=== PATIENT | female | born 1930 | race Caucasian/White ===

== ENCOUNTER → 2017-06-25 | Outpatient (CLI) | payer MEDICARE, OTHER ==
[~2017-06-25] MED LIST: ACYC800 PO; ASPI81CH PO; ASPI81EC PO; ATOR10; BUME2; CALCAVITDA PO; CALGLU500; ESOM20 PO; FISH1000 PO; FLUT.05NI; FURO40; Flovent Diskus50 MCG; HYDACE5 PO; IRON OTC; LIPITOR PO; METF500 PO; OLME20; POTA10T; PRAM.5; PRED10 PO; STOMUL; TOCO400; VENL75; VENL75ER PO; XARELTO15 MG PO; ZANTAC PO
[2017-06-25 17:10] LABS: Percent Saturation 16.7 % (15.0-50.0)
== END ==
LOC: LAB 13:00
PROVIDERS: Internal Medicine Hematology & Oncology
DX: D50.9 Iron deficiency anemia, unspecified (principal)
CPT/HCPCS: 82728; 83540; 83550

== ENCOUNTER 2017-12-17 12:06 | Emergency (ER) | payer MEDICARE, OTHER ==
[~2017-12-17] VITALS: Ht 162.6 cm; Wt 81.7 kg
[~2017-12-17 12:06] MED LIST changes: -XARELTO15 MG PO
[2017-12-17] MEDS ORDERED: XARELTO15 MG PO (13:52)
[2017-12-17 14:03] LABS: Albumin, Blood 3.5 g/dL (3.4-5.0); Albumin/Globulin Ratio 0.9 (0.8-1.8); Bilirubin, Total 0.2 mg/dL (0.1-1.0); Bun/Creatinine Ratio 24.6 (12.0-20.0); Calcium, Blood 8.7 mg/dL (8.5-10.1); Creatinine, Blood 1.26 mg/dL (0.40-1.00); Globulin, Blood 4.1 g/dL (2.2-4.0); Potassium, Blood 4.3 mmol/L (3.5-5.5); Total Protein, Blood 7.6 g/dL (6.4-8.2)
[2017-12-17 14:44] LABS: BASOPHILS ABSOLUTE AUTO 0.09 K/mm3 (0.00-0.23); BASOPHILS PERCENT AUTO 1 % (0-2); EOSINOPHILS ABSOLUTE AUTO 0.27 K/mm3 (0.00-0.68); EOSINOPHILS PERCENT AUTO 3 % (0-6); Hemoglobin 12.2 g/dL (11.5-16.0); IMMATURE GRAN ABSOLUTE AUTO 0.06 K/mm3 (0.00-0.10); IMMATURE GRAN PERCENT AUTO 1 % (0-1); LYMPHOCYTES ABSOLUTE AUTO 1.61 K/mm3 (0.84-5.20); LYMPHOCYTES PERCENT AUTO 17 % (21-46); MONOCYTES ABSOLUTE AUTO 1.11 K/mm3 (0.16-1.47); MONOCYTES PERCENT AUTO 12 % (4-13); Mean Corpuscular HGB 28.5 pg (26.0-34.0); Mean Corpuscular HGB Conc 30.5 g/dL (31.5-36.5); Mean Corpuscular Volume 94 fL (80-100); Mean Platelet Volume 10.4 fL (9.1-12.4); NEUTROPHILS PERCENT AUTO 68 % (41-73); Platelet Count 219 K/mm3 (150-400); RDW Coefficient Variation 14.7 % (11.7-14.2); RDW Standard Deviation 48.8 fL (35.1-46.3); Red Blood Cell Count 4.28 M/mm3 (3.80-5.20); White Blood Cell Count 9.64 K/mm3 (4.00-11.30)
== END 2017-12-17 14:47 | disposition home or self-care (01) ==
LOC: ER 12:06
PROVIDERS: Internal Medicine
DX: I82.432 Acute embolism and thrombosis of left popliteal vein (principal); I82.412 Acute embolism and thrombosis of left femoral vein; I10 Essential (primary) hypertension; E78.5 Hyperlipidemia, unspecified; E11.9 Type 2 diabetes mellitus without complications; Z79.899 Other long term (current) drug therapy; Z79.82 Long term (current) use of aspirin; Z87.891 Personal history of nicotine dependence
CPT/HCPCS: 36415; 80053; 85025; 93971; 99284-25

== ENCOUNTER → 2018-09-16 | Outpatient (CLI) | payer MEDICARE, OTHER ==
[~2018-09-16] MED LIST changes: +XARELTO15 MG PO
== END | disposition home or self-care (01) ==
LOC: PLD 07:41 → LAB SHORT 07:41
DX: D14.0 Benign neoplasm of middle ear, nasal cavity and accessory sinuses (principal)
CPT/HCPCS: 88305

== ENCOUNTER 2019-01-24 09:32 | Emergency (ER) | payer MEDICARE, OTHER ==
[~2019-01-24] VITALS: Ht 165.1 cm; Wt 80.7 kg
[~2019-01-24 09:32] MED LIST changes: +POTA10T PO
[2019-01-24] MEDS ORDERED: ALLO100 PO (10:44)
[2019-01-24] MEDS ORDERED: CALC.25 PO (10:45)
[2019-01-24] MEDS ORDERED: CYAN1000I IM (10:46)
[2019-01-24] MEDS ORDERED: METF500C PO (10:47)
[2019-01-24] MEDS ORDERED: OLMESARTAN MEDO40 MG PO (10:47)
[2019-01-24] MEDS ORDERED: HYDR1TAB94 PO (13:04)
[2019-01-24] MEDS ORDERED: XARELTO1 EACH PO (13:04)
[2019-01-24] MEDS ORDERED: XARELTO15 MG PO (13:04)
== END 2019-01-24 13:10 | disposition home or self-care (01) ==
LOC: ER 09:32
DX: I82.402 Acute embolism and thrombosis of unspecified deep veins of left lower extremity (principal); M79.605 Pain in left leg; E11.9 Type 2 diabetes mellitus without complications; Z87.891 Personal history of nicotine dependence; Z79.899 Other long term (current) drug therapy; Z79.82 Long term (current) use of aspirin; Z79.84 Long term (current) use of oral hypoglycemic drugs
CPT/HCPCS: 93971; 99283-25

== ENCOUNTER → 2019-05-27 | Outpatient (CLI) | payer MEDICARE, OTHER ==
[~2019-05-27] MED LIST changes: +ALLO100 PO; +CALC.25 PO; +CYAN1000I IM; +HYDR1TAB94 PO; +METF500C PO; +OLMESARTAN MEDO40 MG PO; +XARELTO1 EACH PO
[2019-05-27 13:00] LABS: Source, Urine Clean Catch
[2019-05-27 18:24] LABS: Bilirubin, Urine Neg (Neg); Blood, Urine Neg (Neg); Glucose Qualitative, Urine Neg (Neg); Ketones, Urine 1+ (Neg); Leukocyte Esterase, Urine 2+ (Neg); Nitrite, Urine Neg (Neg); Protein, Urine 1+ (Neg); Specific Gravity, Urine 1.015 (1.003-1.022); Urobilinogen, Urine NORM (Normal)
[2019-05-27 18:42] LABS: Appearance, Urine Clear (Clear); Color, Urine Yellow (P-Yellow)
[2019-05-27 18:43] LABS: Bacteria Mod /hpf; Red Blood Cells, Urine 0-2 /hpf (0-2); Squamous Epithelial Cells Few /hpf (Few)
== END ==
LOC: LAB SHORT 12:57 → LAB 12:57
PROVIDERS: Internal Medicine
DX: N39.0 Urinary tract infection, site not specified (principal)
CPT/HCPCS: 81001

== ENCOUNTER → 2019-06-01 | Outpatient (CLI) | payer MEDICARE, OTHER | END | disposition home or self-care (01) | LOC: LAB SHORT 11:38 → PLD 11:38 | DX: D48.5 Neoplasm of uncertain behavior of skin (principal) | CPT/HCPCS: 88305 ==

== ENCOUNTER → 2021-02-01 | Outpatient (CLI) | payer MEDICARE, OTHER ==
[~2021-02-01] MED LIST changes: +BUMETANIDE2 M2 PO; +ELIQUIS5 M3 PO; +ESOMEPRAZOLE MA40 MG PO
[2021-02-02 14:53] LABS: C DIFFICILE DNA NEGATIVE (Negative)
== END | disposition home or self-care (01) ==
LOC: LAB SHORT 10:00 → LAB FUT 01-30 16:40
PROVIDERS: Internal Medicine
DX: R19.7 Diarrhea, unspecified (principal)
CPT/HCPCS: 87493

== ENCOUNTER 2021-12-08 10:47 | Inpatient (IN) | payer MEDICARE, OTHER ==
[~2021-12-08] VITALS: Ht 160 cm; Wt 76.4 kg
[~2021-12-08 10:47] MED LIST changes: +ALBU90OI INH; +ATOR10 PO; +B-12 COMPL1000 MCG/2; -BUMETANIDE2 M2 PO; +ESCI10 PO; +MIRAPEX0.25 M2 PO; +OLOPATADINE HCL5 ML
[2021-12-08 11:45] LABS: Influenza A, PCR NEGATIVE (NEGATIVE); Influenza B, PCR NEGATIVE (NEGATIVE); Resp Syncytial Virus, PCR NEGATIVE (NEGATIVE); SARS-Cov-2 (COVID-19) PCR, MMC NEGATIVE (NEGATIVE)
[2021-12-08 12:47] LABS: Source, Urine Straight Cath
[2021-12-08 12:49] LABS: BASOPHILS ABSOLUTE AUTO 0.05 K/mm3 (0.00-0.23); BASOPHILS PERCENT AUTO 0 % (0-2); EOSINOPHILS ABSOLUTE AUTO 0.15 K/mm3 (0.00-0.68); EOSINOPHILS PERCENT AUTO 1 % (0-6); Hematocrit 27.3 % (33.0-51.0); Hemoglobin 8.2 g/dL (11.5-16.0); IMMATURE GRAN ABSOLUTE AUTO 0.06 K/mm3 (0.00-0.10); IMMATURE GRAN PERCENT AUTO 0 % (0-1); LYMPHOCYTES ABSOLUTE AUTO 2.22 K/mm3 (0.84-5.20); LYMPHOCYTES PERCENT AUTO 15 % (21-46); MONOCYTES ABSOLUTE AUTO 1.71 K/mm3 (0.16-1.47); MONOCYTES PERCENT AUTO 12 % (4-13); Mean Corpuscular HGB 27.2 pg (26.0-34.0); Mean Corpuscular Volume 90 fL (80-100); Mean Platelet Volume 10.2 fL (9.1-12.4); NEUTROPHILS ABSOLUTE AUTO 10.37 K/mm3 (1.96-9.15); NEUTROPHILS PERCENT AUTO 71 % (41-73); Platelet Count 195 K/mm3 (150-400); RDW Coefficient Variation 13.6 % (11.7-14.2); RDW Standard Deviation 45.4 fL (35.1-46.3); Red Blood Cell Count 3.02 M/mm3 (3.80-5.20); White Blood Cell Count 14.56 K/mm3 (4.00-11.30)
[2021-12-08 12:56] LABS: Albumin, Blood 2.9 g/dL (3.4-5.0); Albumin/Globulin Ratio 0.6 (0.8-1.8); Bilirubin, Total 0.5 mg/dL (0.1-1.0); Bun/Creatinine Ratio 23.3 (12.0-20.0); Calcium, Blood 8.7 mg/dL (8.5-10.1); Creatinine, Blood 2.32 mg/dL (0.40-1.00); Globulin, Blood 4.5 g/dL (2.2-4.0); Potassium, Blood 3.9 mmol/L (3.5-5.5); Total Protein, Blood 7.4 g/dL (6.4-8.2)
[2021-12-08 13:10] LABS: Appearance, Urine Hazy (Clear); Bilirubin, Urine Neg (Neg); Blood, Urine Neg (Neg); Glucose Qualitative, Urine Neg (Neg); Ketones, Urine Neg (Neg); Leukocyte Esterase, Urine Neg (Neg); Nitrite, Urine Neg (Neg); Protein, Urine Neg (Neg); Specific Gravity, Urine 1.015 (1.003-1.022); Urobilinogen, Urine NORM (Normal)
[2021-12-08 13:59] LABS: Color, Urine Pale Yellow (P-Yellow)
[2021-12-08 14:02] LABS: Amorphous Mod (0-Heavy); Bacteria Mod /hpf; Red Blood Cells, Urine 0-2 /hpf (0-2); Squamous Epithelial Cells Rare /hpf (Few); White Blood Cells, Urine 0-2 /hpf (0-5)
[2021-12-08] MEDS ORDERED: GLIP5 PO (16:45)
--- NOTE | 2021-12-08 19:50 | NUR ---
SHIFT SUMMARY MS BASURTO WAS ADMITTED TO MEDICAL UNIT FROM ER AROUND 1705HRS. HER DAUGHTER WAS PRESENT ON ADMISSION AND STAYED TO HELP WITH ADMISSION QUESTIONS. 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 PT LIVES WITH ANOTHER DAUGHTER. MS BASURTO HAS HAD A COUGH AND HEADACHE FOR A MONTH OR MORE, NOT SLEEPING WELL. HEADACHE HAS CHANGED IN LOCATION AND INTENSITY. C/O MOIST COUGH, SAID SHE IS EXPECTORATING SMALL AMT OF GREEN SPUTUM. C/O EYE REDNESS, PAIN AND IRRITATION, REQUESTING EYEDROPS. DR SHAW CALLED AND [facility] EYE DROP ORDER PLACED. BLOOD GLUCOSE LOW ON ADMISSION. PT SAID SHE HADN'T EATEN SINCE MORNING. GIVEN SNACK, RECHECKED AND GIVEN MEAL TRAY. DR SHAW INFORMED OF BG. C/O TOOTHACHE AND HAS A HISTORY OF SINUS PROBLEMS AND HAS HAD PRIOR SINUS SURGERY. NS AT 75CC/HR ORDERED AND HUNG BUT PIV IS NOT FLUSHING SO NEEDS TO BE REPLACED. PASSED ON TO NIGHT RN. PT AND DAUGHTER DISCUSSED DNR AND SAID THIS WAS THEIR DECISION TO BE DNR. DR SHAW INFORMED AND ORDER PLACED IN [facility]. PT ORIENTATED TO SELF, MMC, TO YEAR BUT NOT MONTH OR SEASON. DAUGHTER SAID SHE HAS BEEN CONFUSED OF LATE. PT FORGETFUL AND KLAMATH. PLEASANT AND COOPERATIVE. SHE TRANSFERED WITH 2 PERSON ASSIST TO BS, UNSTEADY AT THE TIME, BUT SHE HADN'T STOOD UP FOR MOST OF THE DAY IN ER. REMINDED TO USE CALL LIGHT AND GET HELP BEFORE GETTING OUT OF BED. BED LOW, CALL LIGHT IN REACH, BED ALARM ON.
[2021-12-09 05:18] LABS: Hematocrit 25.3 % (33.0-51.0); Hemoglobin 7.6 g/dL (11.5-16.0); Mean Corpuscular Volume 90 fL (80-100); Mean Platelet Volume 10.1 fL (9.1-12.4); Platelet Count 196 K/mm3 (150-400); RDW Coefficient Variation 13.7 % (11.7-14.2); RDW Standard Deviation 45.1 fL (35.1-46.3); Red Blood Cell Count 2.82 M/mm3 (3.80-5.20); White Blood Cell Count 16.13 K/mm3 (4.00-11.30)
--- NOTE | 2021-12-09 05:58 | NUR ---
SHIFT SUMMARY PATIENT ALERT AND ORIENTED X3. MEDICATED PER EMAR FOR PAIN AND COUGH. NO ACUTE ISSUES NOTED OVERNIGHT. CALL LIGHT WITHIN REACH. REPORT GIVEN TO ONCOMING RN.
[2021-12-09 09:40] LABS: Albumin, Blood 2.6 g/dL (3.4-5.0); Anion Gap 8 mmol/L (6-16); Blood Urea Nitrogen 47 mg/dL (8-24); Bun/Creatinine Ratio 23.2 (12.0-20.0); CO2, Blood 22 mmol/L (21-32); Calcium, Blood 8.4 mg/dL (8.5-10.1); Chloride, Blood 111 mmol/L (98-108); Creatinine, Blood 2.03 mg/dL (0.40-1.00); Glomerular Filtration Rate 23 (60-); Glucose, Blood 154 mg/dL (70-99); Phosphorus, Blood 2.8 mg/dL (2.5-4.9); Potassium, Blood 4.2 mmol/L (3.5-5.5); Sodium, Blood 141 mmol/L (136-145)
--- NOTE | 2021-12-09 12:09 | NUR ---
MS BASURTO IS ORIENTATED TO HER NAME, COULDN'T REMEMBER THAT SHE'S IN HOSPITAL BUT REMEMBERED WHEN REMINDED. DOESN'T KNOW THE DATE OR YEAR. SHE IS COOPERATIVE, PLEASANT, AGUA CALIENTE, POOR HISTORIAN. CONCERNS REGARDING LOWER H&H TODAY, SHE DID SAY SHE HAD SOME BRPPR, NO BLACK STOOLS, BUT HARD TO TELL HOW GOOD HER MEMORY IS. SHE HAD BM THIS AM THAT VALVE LINER RUBBER SAID WAS BROWN, NO SIGNS OF BLOOD TO HER. MOIST PRODUCTIVE COUGH, NO SOB ON ROOM AIR. EYES RED AND IRRITATED, PT SAID THEY ARE TENDER AND SCRACHY, EYE DROPS GIVEN PER JUN. 1 PERSON ASSIST TO BSC. BED LOW, CALL LIGHT IN REACH, BED ALARM ON.
--- NOTE | 2021-12-09 19:52 | NUR ---
SHIFT SUMMARY SEE RN NOTE FROM 1209PM TODAY. NO ACUTE CHANGES SINCE THIS TIME. MS BASURTO REMAINS PLEASANTLY CONFUSED, COOPERATIVE. 1 PERSON ASSIST UP TO THE BATHROOM. C/O MILD HEADACHE THAT RESOLVED WITH TYLENOL. NO BLOODY STOOLS. IVF CONTINUE, PLUS TOLERATING PO. BED LOW, CALL LIGHT IN REACH, BED ALARM ON.
[2021-12-09 23:52] LABS: Hematocrit 23.8 % (33.0-51.0); Hemoglobin 7.3 g/dL (11.5-16.0)
[2021-12-10 07:39] LABS: BASOPHILS ABSOLUTE AUTO 0.06 K/mm3 (0.00-0.23); BASOPHILS PERCENT AUTO 1 % (0-2); EOSINOPHILS ABSOLUTE AUTO 0.37 K/mm3 (0.00-0.68); EOSINOPHILS PERCENT AUTO 3 % (0-6); Hematocrit 25.3 % (33.0-51.0); Hemoglobin 7.6 g/dL (11.5-16.0); IMMATURE GRAN ABSOLUTE AUTO 0.32 K/mm3 (0.00-0.10); IMMATURE GRAN PERCENT AUTO 2 % (0-1); LYMPHOCYTES ABSOLUTE AUTO 1.55 K/mm3 (0.84-5.20); LYMPHOCYTES PERCENT AUTO 12 % (21-46); MONOCYTES ABSOLUTE AUTO 1.32 K/mm3 (0.16-1.47); MONOCYTES PERCENT AUTO 10 % (4-13); Mean Corpuscular HGB 27.5 pg (26.0-34.0); Mean Corpuscular Volume 92 fL (80-100); Mean Platelet Volume 9.8 fL (9.1-12.4); NEUTROPHILS ABSOLUTE AUTO 9.68 K/mm3 (1.96-9.15); NEUTROPHILS PERCENT AUTO 73 % (41-73); Platelet Count 219 K/mm3 (150-400); RDW Coefficient Variation 13.7 % (11.7-14.2); Red Blood Cell Count 2.76 M/mm3 (3.80-5.20)
[2021-12-10 07:59] LABS: Bun/Creatinine Ratio 20.9 (12.0-20.0); Calcium, Blood 8.6 mg/dL (8.5-10.1); Creatinine, Blood 1.82 mg/dL (0.40-1.00); Potassium, Blood 4.2 mmol/L (3.5-5.5)
--- NOTE | 2021-12-10 07:59 | NUR ---
SHIFT SUMMARY: PATIENT IS A&O TO SELF, PLACE AND TIME BUT CAN BE FORGEFUL. REPORTED FEELING SOB AFTER A COUGHING SPELL THAT WOKE HER OUT OF A SOUND SLEEP. RT CAME TO EVAL PATIENT. RECOMENDED PLACING 02 AT 1L VIA NC FOR COMFORT. PATIENT HAS A HARSH NO PRODUCTIVE COUGH. LUNGS ARE CLEAR BUT DIMMINISHED AT THE BASES. PATIENT REPORTS HEADACHE WITH COUGH. PRN TYLENOL AND COUGH MED PER MAR WITH GOOD EFFECT. BED ALARM IS ON FOR SAFETY.
--- NOTE | 2021-12-10 17:39 | NUR ---
SHIFT SUMMARY MS BASURTO HAS BEEN CONFUSED TODAY. ORIENTATED TO SELF, MMC AND 2021 WHEN ASKED, BUT SHE DID GET UP OUT OF HER CHAIR WITHOUT CALLING FOR ASSISTANCE TODAY (CHAIR ALARM WAS ON) AND PULLED HER PIV OUT. PIV REPLACED WITH REMINDERS OF WHY WE NEED TO HAVE IT IN. REMINDED TO USE CALL LIGHT. CHEST PT ORDERED AND RT SEEING HER. STRONG MOIST PRODUCTIVE COUGH. EYES VERY RED AND ITCHY. C/O LEFT ANKLE PAIN, DAUGHTER CONTACTED AND PT ON GOUT MEDS THAT WERE STARTED TODAY. ON ROOM AIR TODAY, BUT VERY STRONG WET COUGH. BED LOW, CALL LIGHT IN REACH, ALARMS ON
[2021-12-11 06:25] LABS: BASOPHILS ABSOLUTE AUTO 0.08 K/mm3 (0.00-0.23); BASOPHILS PERCENT AUTO 1 % (0-2); EOSINOPHILS ABSOLUTE AUTO 0.23 K/mm3 (0.00-0.68); EOSINOPHILS PERCENT AUTO 2 % (0-6); Hematocrit 22.1 % (33.0-51.0); Hemoglobin 6.7 g/dL (11.5-16.0); IMMATURE GRAN ABSOLUTE AUTO 0.49 K/mm3 (0.00-0.10); IMMATURE GRAN PERCENT AUTO 4 % (0-1); LYMPHOCYTES ABSOLUTE AUTO 1.34 K/mm3 (0.84-5.20); LYMPHOCYTES PERCENT AUTO 12 % (21-46); MONOCYTES ABSOLUTE AUTO 1.29 K/mm3 (0.16-1.47); MONOCYTES PERCENT AUTO 11 % (4-13); Mean Corpuscular HGB 27.2 pg (26.0-34.0); Mean Corpuscular HGB Conc 30.3 g/dL (31.5-36.5); Mean Corpuscular Volume 90 fL (80-100); Mean Platelet Volume 10.2 fL (9.1-12.4); NEUTROPHILS ABSOLUTE AUTO 8.15 K/mm3 (1.96-9.15); NEUTROPHILS PERCENT AUTO 70 % (41-73); Platelet Count 223 K/mm3 (150-400); RDW Coefficient Variation 13.3 % (11.7-14.2); RDW Standard Deviation 44.1 fL (35.1-46.3); Red Blood Cell Count 2.46 M/mm3 (3.80-5.20); White Blood Cell Count 11.58 K/mm3 (4.00-11.30)
[2021-12-11 06:43] LABS: Bun/Creatinine Ratio 18.3 (12.0-20.0); Calcium, Blood 8.6 mg/dL (8.5-10.1); Creatinine, Blood 1.86 mg/dL (0.40-1.00); Potassium, Blood 4.2 mmol/L (3.5-5.5)
--- NOTE | 2021-12-11 08:01 | NUR ---
SHIFT SUMMARY: PATIENT IS A&O TO SELF AND PLACE, MORE CONFUSED THAN YESTERDAY. LOW GRADE TEMP. WAS OBSERVED AND SLIGHT HEART RATE ELEVATION. RESOLVED WITH PRN TYLENOL. PATIENT ALSO REPORTS GOUT PAIN IN THE LEFT ANKLE, ALLOPURINOL WAS STARTED YESTERDAY.
[2021-12-11 15:49] LABS: Hematocrit 23.7 % (33.0-51.0); Hemoglobin 7.3 g/dL (11.5-16.0)
--- NOTE | 2021-12-11 16:32 | NUR ---
PATIENT IS DOING BETTER. PROVIDER IS ANTICIPATING DISCHARGE TOMORROW MORNING AFTER A REPEAT H&H, AND LEVELS ABOVE 7HGB. PATIENTS ABX IS CHANGED TO ORAL, AND NS HAS BEEN DISCONTINUED. FAMILY IS AWARE OF THE EARLY DISHCARGE, PENDING LABS. PATIENT HAS BEEN UP AND WALKING WITH PT THIS SHIFT. SHE HAS SOME EDEMA IN LE, BUT IS ABLE TO AMBULATE. DOING WELL. WILL CONTINUE TO MONITOR.
--- NOTE | 2021-12-12 04:47 | NUR ---
SHIFT SUMMARY A/OX2, PLEASANTLY CONFUSED WITH VISUAL HALLUCINATIONS. CONTINENT, 1 ASSIST TO BATHROOM WITH FWW. C/O L. FOOT PAIN, MEDICATED PER EMAR. VSS, NO ACUTE CHANGES AT THIS TIME. BED IN LOWEST POSITION WITH CALL LIGHT IN REACH. WILL CONTINUE TO MONITOR AND REPORT TO ONCOMING RN.
[2021-12-12 07:51] LABS: BASOPHILS ABSOLUTE AUTO 0.07 K/mm3 (0.00-0.23); BASOPHILS PERCENT AUTO 1 % (0-2); EOSINOPHILS ABSOLUTE AUTO 0.14 K/mm3 (0.00-0.68); EOSINOPHILS PERCENT AUTO 1 % (0-6); Hematocrit 21.9 % (33.0-51.0); Hemoglobin 6.7 g/dL (11.5-16.0); IMMATURE GRAN ABSOLUTE AUTO 0.57 K/mm3 (0.00-0.10); IMMATURE GRAN PERCENT AUTO 5 % (0-1); LYMPHOCYTES ABSOLUTE AUTO 1.08 K/mm3 (0.84-5.20); LYMPHOCYTES PERCENT AUTO 9 % (21-46); MONOCYTES ABSOLUTE AUTO 1.38 K/mm3 (0.16-1.47); MONOCYTES PERCENT AUTO 12 % (4-13); Mean Corpuscular HGB 27.5 pg (26.0-34.0); Mean Corpuscular HGB Conc 30.6 g/dL (31.5-36.5); Mean Corpuscular Volume 90 fL (80-100); Mean Platelet Volume 9.9 fL (9.1-12.4); NEUTROPHILS ABSOLUTE AUTO 8.61 K/mm3 (1.96-9.15); NEUTROPHILS PERCENT AUTO 73 % (41-73); Platelet Count 237 K/mm3 (150-400); RDW Coefficient Variation 13.4 % (11.7-14.2); RDW Standard Deviation 44.1 fL (35.1-46.3); Red Blood Cell Count 2.44 M/mm3 (3.80-5.20); White Blood Cell Count 11.85 K/mm3 (4.00-11.30)
[2021-12-12 08:13] LABS: Bun/Creatinine Ratio 17.6 (12.0-20.0); Calcium, Blood 8.5 mg/dL (8.5-10.1); Creatinine, Blood 1.88 mg/dL (0.40-1.00)
[2021-12-12] MEDS ORDERED: POTA10T PO (13:11)
[2021-12-12] MEDS ORDERED: ALLO100 PO ×2 (13:11→15:20)
[2021-12-12] MEDS ORDERED: VISBIOME 112.51 EACH PO (13:12)
[2021-12-12] MEDS ORDERED: DOCUZEN 8.6-501 EACH PO (13:12)
--- NOTE | 2021-12-12 14:56 | NUR ---
PATIENT TOLERATED RED BLOOD CELL TRANSFUSION WELL. PLAN TO DC TODAY.
[2021-12-12 16:27] LABS: Hematocrit 24.9 % (33.0-51.0); Hemoglobin 7.9 g/dL (11.5-16.0)
--- NOTE | 2021-12-12 18:48 | NUR ---
PATIENTS H & h WAS RECHECKED THIS AM. ONE UNIT OF RED BLOOD CELLS WAS ADMINISTERED WITHOUT EVENT AND THE PATIENT WAS PLANNING TO DISCHARGE. PAPERWORK WS COMPLETED AND SIGNED AND SHE WAS READY TO LEAVE WITH FAMILY. HOWEVER, WHEN ATTEMPTING TO GET INTO WHEEL CHAIR, PATIENT WAS UNABLE TO STEP ON FOOT DUE TO PAIN AND SWELLING FROM GOUT. FAMILY WAS CONCERNED ABOUT HOW THEY WERE GOING TO GET HER INTO THE CAR, AND ALSO CONCERNED ABOUT HER GETTING AROUND AT HOME WITHOUT WC. DR. WONG AND TWO OTHER DOCTORS CAME TO SPEAK WITH PATIENT AND FAMILY. DECISION TO KEEP THE PATIENT ONE MORE NIGHT, WAS MADE. NEW ORDER FOR COLCHICINE 1.2MG X 1, AND THEN COLCHICINE 0.6MG ONE HOUR LATER X 1 TONIGHT FOR RAPID TREATMENT OF THE GOUT FLARE. PLAN IS TO DISCHARGE THE PATIENT TO HOME TOMORROW MORNING AFTER ANOTHER POSSIBLE ADMINISTRATION OF THIS SAME MED. FURTHER DIRECTION ON THIS WILL BE PROVIDED BY THE TEAM OF PROVIDERS.
--- NOTE | 2021-12-13 04:27 | NUR ---
SHIFT SUMMARY A/O 2-3, PLEASANTLY CONFUSED. C/O LLE PAIN, MEDICATED PER EMAR. 2P ASSIST WITH GB AND FWW TO BSC. VSS, NO ACUTE CHANGES AT THIS TIME. BED IN LOWEST POSITION WITH CALL LIGHT IN REACH. WILL CONTINUE TO MONITOR AND REPORT TO ONCOMING RN.
[2021-12-13 04:45] LABS: BASOPHILS ABSOLUTE AUTO 0.06 K/mm3 (0.00-0.23); BASOPHILS PERCENT AUTO 0 % (0-2); EOSINOPHILS ABSOLUTE AUTO 0.09 K/mm3 (0.00-0.68); EOSINOPHILS PERCENT AUTO 1 % (0-6); Hematocrit 24.3 % (33.0-51.0); Hemoglobin 7.7 g/dL (11.5-16.0); IMMATURE GRAN ABSOLUTE AUTO 0.66 K/mm3 (0.00-0.10); IMMATURE GRAN PERCENT AUTO 5 % (0-1); LYMPHOCYTES ABSOLUTE AUTO 0.99 K/mm3 (0.84-5.20); LYMPHOCYTES PERCENT AUTO 7 % (21-46); MONOCYTES ABSOLUTE AUTO 1.57 K/mm3 (0.16-1.47); MONOCYTES PERCENT AUTO 11 % (4-13); Mean Corpuscular HGB 28.1 pg (26.0-34.0); Mean Corpuscular HGB Conc 31.7 g/dL (31.5-36.5); Mean Corpuscular Volume 89 fL (80-100); Mean Platelet Volume 9.7 fL (9.1-12.4); NEUTROPHILS ABSOLUTE AUTO 11.04 K/mm3 (1.96-9.15); NEUTROPHILS PERCENT AUTO 77 % (41-73); Platelet Count 256 K/mm3 (150-400); RDW Coefficient Variation 13.6 % (11.7-14.2); RDW Standard Deviation 43.8 fL (35.1-46.3); Red Blood Cell Count 2.74 M/mm3 (3.80-5.20); White Blood Cell Count 14.41 K/mm3 (4.00-11.30)
[2021-12-13 05:24] LABS: Bun/Creatinine Ratio 21.5 (12.0-20.0); Calcium, Blood 8.4 mg/dL (8.5-10.1); Creatinine, Blood 1.44 mg/dL (0.40-1.00); Potassium, Blood 3.9 mmol/L (3.5-5.5)
[2021-12-13] MEDS ORDERED: COLCHICINE0.6 MG PO (14:46)
== END 2021-12-13 15:51 | disposition home or self-care (01) | DRG 871 ==
LOC: ER 10:47 → MEDS 14:54
PROVIDERS: Emergency Medicine; Family Medicine; Internal Medicine; Nurse Practitioner Acute Care; Student in an Organized Health Care Education/Training Program; ADMIT Internal Medicine
PROC: 3E03329 Introduction of Other Anti-infective into Peripheral Vein, Percutaneous Approach (ICD-10-PCS; principal; 2021-12-09)
PROC: 30233N1 Transfusion of Nonautologous Red Blood Cells into Peripheral Vein, Percutaneous Approach (ICD-10-PCS; 2021-12-12)
DX: A41.9 Sepsis, unspecified organism (principal); G93.41 Metabolic encephalopathy; N17.0 Acute kidney failure with tubular necrosis; J18.9 Pneumonia, unspecified organism; F05 Delirium due to known physiological condition; N18.4 Chronic kidney disease, stage 4 (severe); Z66 Do not resuscitate; R65.20 Severe sepsis without septic shock; H10.13 Acute atopic conjunctivitis, bilateral; Z20.822 Contact with and (suspected) exposure to COVID-19; D50.0 Iron deficiency anemia secondary to blood loss (chronic); K21.9 Gastro-esophageal reflux disease without esophagitis; F03.90 Unspecified dementia, unspecified severity, without behavioral disturbance, psychotic disturbance, mood disturbance, and anxiety; D63.1 Anemia in chronic kidney disease; M10.00 Idiopathic gout, unspecified site; M10.9 Gout, unspecified; E11.649 Type 2 diabetes mellitus with hypoglycemia without coma; M25.572 Pain in left ankle and joints of left foot; G47.33 Obstructive sleep apnea (adult) (pediatric); E11.22 Type 2 diabetes mellitus with diabetic chronic kidney disease; K64.9 Unspecified hemorrhoids; Z79.899 Other long term (current) drug therapy; Z79.84 Long term (current) use of oral hypoglycemic drugs; Z86.718 Personal history of other venous thrombosis and embolism; Z79.51 Long term (current) use of inhaled steroids; Z79.01 Long term (current) use of anticoagulants; Z79.02 Long term (current) use of antithrombotics/antiplatelets; Z90.711 Acquired absence of uterus with remaining cervical stump; Z90.49 Acquired absence of other specified parts of digestive tract; Z98.890 Other specified postprocedural states; Z98.49 Cataract extraction status, unspecified eye; Z87.891 Personal history of nicotine dependence
CPT/HCPCS: 0241U; 36415; 36430; 71045; 73600; 73620; 80048; 80053; 80069; 81001; 82947; 83605; 83880; 84145; 84484; 84550; 85014; 85018; 85025; 85027; 86850; 86900; 86901; 86923; 87040; 87449; 94640; 94664; 94667; 94668; 94760; 96365; 96375; 96376; 97110; 97116; 97161; 97165; 97530; 97535; A9270; G0378; J0456; J0696; J7030; J7040; J7050; P9016; P9612